=== PATIENT | male | born 2000 ===

== ENCOUNTER 2021-02-06 02:17 | Emergency (ER) | payer SELFPAY ==
[2021-02-06 02:35] VITALS: BP 116/68
--- NOTE | 2021-02-06 03:42 | XRay Report ---
Left shoulder radiograph, 3 views HISTORY: Pain, dislocation COMPARISON: None FINDINGS: No acute fracture. Left AC joint is intact. No evidence of glenohumeral joint malalignment. There is no focal soft tissue abnormality. IMPRESSION: No acute abnormality. No evidence of joint malalignment. Signer Name: Robinson Feliz MD Signed: 02/06/2021 3:38 AM Workstation Name: [id number]
[2021-02-06] MEDS ORDERED: oxyCODONE /ACETAMINOPHEN 5-325MG TAB PO ONE (05:32)
--- NOTE | 2021-02-06 05:39 | Emergency Department Report ---
ED Upper Extremity Inj HPI - General Chief Complaint: Extremity Injury, Upper Stated Complaint: LT ARM INJURY/HURTS TO BREATHE Time Seen by Provider: 02/06/21 05:32 Source: patient Mode of arrival: Ambulatory Limitations: No Limitations - History of Present Illness Complaint: Injury to:: left, shoulder Handedness: right Place: home Improves With: none Worsens With: none Context: other (Mr. Mcnulty is moving boxes with dull throbbing ache to that region) Associated Symptoms: denies: denies other symptoms, numbness, nausea/vomiting, heard/felt popping sensat - Related Data Previous Rx's Medication Instructions Recorded Last Taken Type Ketorolac [Toradol] 10 mg PO Q6H PRN #15 tablet 02/06/21 Unknown Rx methOCARBAMOL [Robaxin] 750 mg PO Q8H PRN #21 tablet 02/06/21 Unknown Rx Allergies Allergy/AdvReac Type Severity Reaction Status Date / Time No Known Allergies Allergy Unverified 02/06/21 02:33 ED Review of Systems ROS: Stated complaint: LT ARM INJURY/HURTS TO BREATHE Other details as noted in HPI Comment: All other systems reviewed and negative ED Past Medical Hx - Past Medical History Previous Medical History?: No - Surgical History Past Surgical History?: No - Social History Smoking Status: Never Smoker - Medications Home Medications: Home Medications Medication Instructions Recorded Confirmed Last Taken Type Ketorolac [Toradol] 10 mg PO Q6H PRN #15 tablet 02/06/21 Unknown Rx methOCARBAMOL [Robaxin] 750 mg PO Q8H PRN #21 tablet 02/06/21 Unknown Rx ED Physical Exam - General Limitations: No Limitations General appearance: alert, in no apparent distress - Head Head exam: Present: atraumatic, normocephalic - Eye Eye exam: Present: normal appearance, PERRL, EOMI Pupils: Present: normal accommodation - ENT ENT exam: Present: normal exam, mucous membranes moist - Neck Neck exam: Present: normal inspection - Respiratory Respiratory exam: Present: normal lung sounds bilaterally. Absent: respiratory distress - Cardiovascular Cardiovascular Exam: Present: regular rate, normal rhythm. Absent: systolic murmur, diastolic murmur, rubs, gallop - GI/Abdominal GI/Abdominal exam: Present: soft, normal bowel sounds - Rectal Rectal exam: Present: deferred - Extremities Exam Extremities exam: Present: normal inspection - Expanded Upper Extremity Exam Left Shoulder Exam: Present: tenderness, other (Tenderness along the clavicular region moving upper. No sulcus sign. Pain with abduction and extension. Unable to perform Jarquin Dukes's test due to the discomfort. Strength is still 5 of 5.). Absent: deformity, dislocation, tenderness over AC joint Upper Arm exam: Present: normal inspection, full ROM - Back Exam Back exam: Present: normal inspection - Neurological Exam Neurological exam: Present: alert, oriented X3 - Psychiatric Psychiatric exam: Present: normal affect, normal mood - Skin Skin exam: Present: warm, dry, intact, normal color. Absent: rash ED Course Vital Signs 02/06/21 02/06/21 02:34 05:55 Temperature 98.4 F Pulse Rate 93 H 77 Respiratory 16 16 Rate Blood Pressure 116/68 O2 Sat by Pulse 100 99 Oximetry ED Medical Decision Making - Radiology Data Radiology results: report reviewed [facility] [address] [place] [address] XRay Report Signed Patient: KARENA LOTT MR#: [id number] : 2000 Acct:[id number] Age/Sex: 20 / M ADM Date: 02/06/21 Loc: ED Attending Dr: Ordering Physician: STORMY BYNUM MD Date of Service: 02/06/21 Procedure(s): XR shoulder 2+V LT Accession Number(s): [id number] cc: ED MD MISA Fluoro Time In Minutes: Left shoulder radiograph, 3 views HISTORY: Pain, dislocation COMPARISON: None FINDINGS: No acute fracture. Left AC joint is intact. No evidence of glenohumeral joint malalignment. There is no focal soft tissue abnormality. IMPRESSION: No acute abnormality. No evidence of joint malalignment. Signer Name: Janna Feliz MD Signed: 02/06/2021 3:38 AM Workstation Name: [id number] Transcribed By: JS Dictated By: JANNA FELIZ MD Electronically Authenticated By: JANNA FELIZ MD Signed Date/Time: 02/06/21337 DD/ 6 TD/TT: Print Cancel Critical care attestation.: If time is entered above; I have spent that time in minutes in the direct care of this critically ill patient, excluding procedure time. ED Disposition Clinical Impression: Left shoulder strain Disposition: DC-01 TO HOME OR SELFCARE Is pt being admited?: No Does the pt Need Aspirin: No Condition: Stable Instructions: Deltoid Disruption, How to Use Cold Therapy, [id number], Muscle Strain, [id number], How to Use Cold Therapy Additional Instructions: Please keep shoulder in the immobilizer until you are cleared by Ortho to utilize the left upper extremity Prescriptions: methOCARBAMOL [Robaxin] 750 mg PO Q8H PRN #21 tablet PRN Reason: Spasms Ketorolac [Toradol] 10 mg PO Q6H PRN #15 tablet PRN Reason: Pain Referrals: REBEKAH MANTILLA MD [Staff Physician] - 3-5 Days
== END 2021-02-06 05:55 | disposition home or self-care (01) ==
LOC: ED 02:17
DX: S46.812A Strain of other muscles, fascia and tendons at shoulder and upper arm level, left arm, initial encounter (principal); Z79.899 Other long term (current) drug therapy; X50.1XXA Overexertion from prolonged static or awkward postures, initial encounter; Y93.89 Activity, other specified; Y92.89 Other specified places as the place of occurrence of the external cause; Y99.8 Other external cause status
CPT/HCPCS: 99283